=== PATIENT | male | born 1980 | race African-American/Black ===

== ENCOUNTER 2017-06-21 16:03 | Emergency (ER) | payer OTHER ==
[~2017-06-21] VITALS: Ht 172.7 cm; Wt 66.7 kg
[2017-06-21 16:31] VITALS: BP 161/102
--- NOTE | 2017-06-21 17:29 | ED GENERAL ADULT ---
History of Present Illness General Chief Complaint: Sore Throat, Dental Pain Stated Complaint: "ALL MY FILLINGS FELL OUT OF MY MOUTH" Source: patient Exam Limitations: no limitations Vital Signs & Intake/Output Vital Signs & Intake/Output Vital Signs Date Time Temp Pulse Resp B/P B/P Pulse O2 O2 Flow FiO2 Mean Ox Delivery Rate 06/21 1631 97.2 107 18 161/102 97 Room Air Allergies Coded Allergies: No Known Allergies (06/21/17) Reconcile Medications Amoxicillin/Potassium Clav (Augmentin 875-125 Tablet) 875 MG-125 MG TABLET 1 TAB PO BID dental infection Oxycodone HCl/Acetaminophen (Percocet 5-325 MG Tablet) 5 MG-325 MG TABLET 1 TAB PO EVERY 6HRS- NEEDED PRN pain Triage Note: PT TO ER C/C FILLINGS FELL OUT ON 06/16 S/P EATING TAFFY. +SEVERE PAIN ?INFECTION SEEN BY ALEXIS QUINN IN TRIAGE Triage Nurses Notes Reviewed? yes Onset: Abrupt Duration: day(s): Timing: constant HPI: 37 y/o male with no known PMHx presenting with dental pain x5 days s/p eating candy. Reports the candy got stuck to his teeth and when he pulled it off his teeth felt his fillings pull out with the candy. Has been using ibuprofen without relief. Denies fevers or drainage. (Karely Higuera) Past History Travel History Traveled to [place] past 21 day No Medical History Any Pertinent Medical History? none Surgical History Surgical History: non-contributory Psychosocial History What is your primary language Kiny[place] Tobacco Use: Current Daily Use Daily Tobacco Use Amount/Type: => 5 Cigarettes daily Family History Hx Contributory? No (Karely Higuera) Review of Systems Review of Systems Constitutional: Reports: no symptoms. EENTM: Reports: tooth pain. Denies: throat pain, mouth pain. Respiratory: Reports: no symptoms. Cardiovascular: Reports: no symptoms. GI: Reports: no symptoms. Genitourinary: Reports: no symptoms. Musculoskeletal: Reports: no symptoms. Skin: Reports: no symptoms. Neurological/Psychological: Reports: no symptoms. Hematologic/Endocrine: Reports: no symptoms. Immunologic/Allergic: Reports: no symptoms. (Karely Higuera) Physical Exam Physical Exam General Appearance: well developed/nourished, no apparent distress, alert, awake Head: atraumatic, normal appearance Eyes: Bilateral: normal appearance. Ears, Nose, Throat: Multiple left upper and right upper teeth with dental caries and broken fragements. +Pain with tooth thrust to multiple upper teeth. No gingivitis or dental abscess visualized. No drainage. Neck: normal inspection Respiratory: normal breath sounds, lungs clear Cardiovascular: regular rate/rhythm Gastrointestinal: soft, non-tender Back: normal inspection Extremities: normal inspection Neurologic/Psych: awake, alert, oriented x 3, normal gait, normal mood/affect Skin: intact, normal color, warm/dry Core Measures ACS in differential dx? No CVA/TIA Diagnosis: No Sepsis Present: No Sepsis Focused Exam Completed? No (Karely Higuera) Progress Differential Diagnoses I considered the following diagnoses in my evaluation of the patient: [Dental infection vs apical abscess] Plan of Care: Rx augmentin and percocet. Instructed to continue ibuprofen as well. Given contact information for dental clinics in the area. Counseled on supportive care and strict return precautions. Initial ED EKG: none (Karely Higuera) Departure Departure Disposition: HOME OR SELF CARE Condition: Stable Clinical Impression Primary Impression: Dental infection Referrals: Patient Has No Primary Care Dr (PCP/Family) Additional Instructions: Take augmentin as prescribed. Use ibuprofen as needed for pain. Use percocet as needed for breakthrough pain after first trying ibuprofen. Departure Forms: Customer Survey General Discharge Information Prescriptions: Current Visit Scripts Oxycodone HCl/Acetaminophen (Percocet 5-325 MG Tablet) 1 TAB PO EVERY 6HRS- NEEDED PRN pain #12 TAB Amoxicillin/Potassium Clav (Augmentin 875-125 Tablet) 1 TAB PO BID #20 TAB (Karely Higuera) PA/AUTOMOTIVE WORKER FOREMAN Co-Sign Statement Statement: ED Attending supervision documentation- [] I saw and evaluated the patient. I have also reviewed all the pertinent lab results and diagnostic results. I agree with the findings and the plan of care as documented in the PA's/AUTOMOTIVE WORKER FOREMAN's documentation. [x] I have reviewed the ED Record and agree with the PA's/AUTOMOTIVE WORKER FOREMAN's documentation. [] Additions or exceptions (if any) to the PAs/AUTOMOTIVE WORKER FOREMAN's note and plan are summarized below: [] (Mikhail Stewart DO) Critical Care Note Critical Care Note Critical Care Time: non-applicable (Karely Higuera)
[2017-06-21] MEDS ORDERED: PERCOCET 5-3251 EACH PO (17:47)
[2017-06-21] MEDS ORDERED: AUGMENTIN 875-1 EACH PO (17:47)
[2017-07-12] MEDS ORDERED: IBUPROFEN800 M1 PO (01:07)
[2017-07-12] MEDS ORDERED: PERCOCET 5-3251 EACH PO (01:07)
[2017-07-12] MEDS ORDERED: AUGMENTIN 875-1 EACH PO (01:08)
== END 2017-06-21 17:59 ==
LOC: ERH 16:03
DX: K04.7 Periapical abscess without sinus (principal)

== ENCOUNTER 2017-10-06 09:06 | Emergency (ER) | payer OTHER ==
[~2017-10-06] VITALS: Ht 172.7 cm; Wt 69.9 kg
[~2017-10-06 09:06] MED LIST: AUGMENTIN 875-1 EACH PO; IBUPROFEN800 M1 PO; PERCOCET 5-3251 EACH PO
--- NOTE | 2017-10-06 09:21 | ED SKIN/ALLERGY COMPLAINT ---
History of Present Illness General Chief Complaint: Skin Rash/ Abcess Stated Complaint: ABCESS Source: patient Exam Limitations: no limitations Vital Signs & Intake/Output Vital Signs & Intake/Output Vital Signs Date Time Temp Pulse Resp B/P B/P Pulse O2 O2 Flow FiO2 Mean Ox Delivery Rate 10/06 1026 97.1 97 15 111/71 99 Room Air Room Air 10/06 1003 Room Air Room Air 10/06 0908 96.0 109 20 117/79 97 Room Air Allergies Coded Allergies: No Known Allergies (06/21/17) Reconcile Medications Amoxicillin/Potassium Clav (Augmentin 875-125 Tablet) 875 MG-125 MG TABLET 1 TAB PO BID dental infection Amoxicillin/Potassium Clav (Augmentin 875-125 Tablet) 875 MG-125 MG TABLET 1 TAB PO BID dental infection Ibuprofen 800 MG TABLET 1 TAB PO TID PRN pain Oxycodone HCl/Acetaminophen (Percocet 5-325 MG Tablet) 5 MG-325 MG TABLET 1 TAB PO 4 TIMES/DAY PRN pain Oxycodone HCl/Acetaminophen (Percocet 5-325 MG Tablet) 5 MG-325 MG TABLET 1 TAB PO EVERY 6HRS- NEEDED PRN pain Sulfamethoxazole/Trimethoprim (Bactrim Ds Tablet) 800 MG-160 MG TABLET 1 TAB PO BID abscess Triage Note: PT TO ED C/O ?ABSCESS TO LEFT UPPER GROIN AREA X 2 WEEKS. STATES HE SQUEEZED IT AND PUS CAME OUT. Triage Nurses Notes Reviewed? yes Onset: Gradual Duration: week(s): Timing: recent history Severity: moderate Location: groin HPI: 37yo male presents to ED complaining of bump on left groin x 2 weeks. Patient states the area started as a pimple and has grown in size over the past several days. Patient states the area is irritated however not painful. He has tried to pop the lesion and had some purulent material expressed. (Vania Mike) Past History Travel History Traveled to [place] past 21 day No Medical History Any Pertinent Medical History? see below for history Respiratory: TB Surgical History Surgical History: non-contributory Psychosocial History What is your primary language [place] Tobacco Use: Current Daily Use Daily Tobacco Use Amount/Type: => 5 Cigarettes daily ETOH Use: occasional use Illicit Drug Use: marijuana Family History Hx Contributory? No (Vania Mike) Review of Systems Review of Systems Constitutional: Reports: no symptoms. EENTM: Reports: no symptoms. Respiratory: Reports: no symptoms. Cardiovascular: Reports: no symptoms. GI: Reports: no symptoms. Genitourinary: Reports: no symptoms. Musculoskeletal: Reports: no symptoms. Skin: Reports: see HPI. Neurological/Psychological: Reports: no symptoms. Hematologic/Endocrine: Reports: no symptoms. Immunologic/Allergic: Reports: no symptoms. All Other Systems: Reviewed and Negative (Vania Mike) Physical Exam Physical Exam General Appearance: well developed/nourished, no apparent distress, alert, awake Head: atraumatic, normal appearance Eyes: Bilateral: normal appearance. Ears, Nose, Throat: hearing grossly normal Neck: normal inspection, supple, full range of motion Respiratory: no respiratory distress Back: normal inspection, normal range of motion Extremities: normal inspection, normal range of motion Neurologic/Psych: awake, alert, oriented x 3 Comments: Genital: 1x2cm area of mild erythema and fluctuance, small active serosanguinous drainage (Vania Mike) Progress Differential Diagnosis: abscess/cellulitis, allergic reaction, contact dermatitis, urticaria Plan of Care: Orders Procedure Date/time Status TRUNK AREA CULTURE 10/06 0938 Active Microbiology 10/06 100 TRUNK: Culture & Sensitivity - RECD 10/06 100 TRUNK: Gram Stain - RECD I&D performed with culture sent to lab. Patient started on bactrim antibiotics and will return for wound check in two days. Patient agrees with the plan of care. (Vania Mike) Departure Departure Disposition: HOME OR SELF CARE Condition: Stable Clinical Impression Primary Impression: Abscess Referrals: Patient Has No Primary Care Dr (PCP/Family) Additional Instructions: Begin antibiotics as prescribed, take 2 doses today, in the morning and at night. Apply warm compresses to help the area drain further. Return in 2 days for wound check. Return sooner with worsening symptoms or concerns. Please note that there might be incidental findings in your evaluation that are unrelated to the current emergency department visit. Please notify your primary care doctor about this emergency department visit in order to obtain and review all of the testing performed so that these incidental findings can be monitored as needed. If you had an x-ray performed, please understand that some fractures may not be seen on the initial set of x-rays. If your symptoms persist you might need a repeat set of x-rays to check for such a fracture. If you had a laceration evaluated, please understand that foreign bodies such as glass or wood may not be visible to the naked eye or on plain x-rays. If the wound becomes red, swollen, increasingly more painful or if there is any drainage from the wound, please have it reevaluated by a physician for the possibility of a retained foreign body. If you're unable to follow up as outlined in the discharge instructions please return to the emergency department. Thank you for choosing the [facility] Emergency Department for your care. It was a pleasure to serve you today. Departure Forms: Customer Survey General Discharge Information Prescriptions: Current Visit Scripts Sulfamethoxazole/Trimethoprim (Bactrim Ds Tablet) 1 TAB PO BID #20 TAB (Jamia ESPINOZA,Vania Parks) PA/REST ROOM MAID Co-Sign Statement Statement: ED Attending supervision documentation- [] I saw and evaluated the patient. I have also reviewed all the pertinent lab results and diagnostic results. I agree with the findings and the plan of care as documented in the PA's/REST ROOM MAID's documentation. [x] I have reviewed the ED Record and agree with the PA's/REST ROOM MAID's documentation. [] Additions or exceptions (if any) to the PAs/REST ROOM MAID's note and plan are summarized below: [] (Nicolette GIPSON,Ulises Murcia) Procedures Incision and Drainage Site: left groin Blade Size: 11 I & D Procedure: Yes: betadine prep, sterile dressing applied. No: sterile drapes applied, wick placed. Progress: Area cleansed with betadine, 1%lidocaine used for anesthesia, small incision made with 11 blade scalpal. Purulent material drained with serosanginous fluid. Culture sent to lab. Packing material not necessary given small pocket. Procedure performed by PA student with my direct supervision. (Jamia ESPINOZA,Vania Parks)
[2017-10-06] MEDS ORDERED: BACTRIM DS TAB1 EACH PO (10:16)
[2017-10-06 10:26] VITALS: BP 111/71
== END 2017-10-06 10:27 ==
LOC: ERH 09:06
DX: L02.214 Cutaneous abscess of groin (principal)
CPT/HCPCS: 87070; J2001